=== PATIENT | male | born 1995 | race Caucasian/White ===

== ENCOUNTER 2016-09-25 10:09 | Emergency (ER) | payer BC, OTHER ==
[~2016-09-25] VITALS: Ht 185.4 cm; Wt 86.1 kg
[2016-09-25 10:17] VITALS: TEMP 36.9; Ht 185.4 cm; Wt 86.1 kg
[2016-09-25] MEDS ORDERED: AMOX875T PO (10:46)
[2016-09-25] MEDS ORDERED: DEXAMETHASONE SOD INJ 10 MG/ML VIAL IV ONE (11:00)
[2016-09-25] MEDS ORDERED: CLINDAMYCIN IV 900 MG in DEXTROSE 5% ADD-VANTAGE 100ML 100 ML IV ONE (11:00)
[2016-09-25] MEDS ORDERED: CLC/300 PO (11:38)
[2016-09-25] MEDS ORDERED: PRED10TA PO (11:38)
--- NOTE | 2016-09-25 11:41 | Discharge Instructions ---
Discharge Instructions Visit Reason for Visit: Swollen Tonsils, Earache, Trouble Breathing Discharge Discharge Diagnosis / Problem: SAME. Discharge Goals Goal(s): Improve function Activity Recommendations Activity Limitations: per Instructions/Follow-up section Lifting Limitations: none Exercise/Sports Limitations: none May Resume Sexual Activity: when tolerated Shower/Bathe: no limitations Anesthesia . Post Anesthesia Instructions: If you have had General Anesthesia or IV Sedation: * Do not drive today. * Resume driving when surgeon permits. * Do not make important decisions or sign legal documents today. * Call surgeon for: 1. Temperature elevations greater than 101 degrees F. 2. Uncontrollable pain. 3. Excessive bleeding. 4. Persistent nausea and vomiting. 5. Medication intolerance (nausea, vomiting or rash). * For nausea and vomiting use only clear liquids such as: tea, soda, bouillon until nausea subsides, then gradually increase diet as tolerated. * If you have any concerns or questions, call your surgeon's office. If physician is unavailable and it is an emergency, call 911 or go to the nearest emergency room. . Instructions / Follow-Up Instructions / Follow-Up PLEASE FOLLOW UP WITH DR. STEPHEN ON FRIDAY AT 745AM IN HIS OFFICE. Diet Recommendations Recommended Home Diet: resume previous diet ( TOLERATED) Pending Studies Studies pending at discharge: yes List of pending studies: PATHOLOGY FOR CULTURE Medical Emergencies . Who to Call and When: Medical Emergencies: If at any time you feel your situation is an emergency, please call 911 immediately. . Non-Emergent Contact Non-Emergency issues call your: Primary Care Provider Contact Number: [phone] . . "Provider Documentation" section prepared by Elva Mendez.
[2016-09-25 12:17] VITALS: BP 140/76; PULSE 90; O2SAT 97
--- NOTE | 2016-09-25 12:17 | EMERGENCY ROOM VISIT NOTE ---
History Report prepared by Chi: Inocencia Hayden Under the Supervision of: Dr. Fabiano Hamilton D.O. First contact with patient: 10:22 Chief Complaint: SORETHROAT Stated Complaint: SWOLLEN TONSILS, EARACHE, TROUBLE BREATHING History of Present Illness The patient is a 20 year old male who presents to the Emergency Room with complaints of a persistent sore throat that began Gabriel. He currently rates his discomfort as a 4/10 in severity. The patient states that he notices right tonsillar swelling and right ear pain. He notes congestion, difficulty sleeping , difficulty breathing, and a fever. The patient states that he has been using Tylenol for his fever. He denies any cough. The patient notes difficulty opening his mouth due to the pain. Source of History: patient Onset: Friday Position: throat Symptom Intensity: 4/10 Quality: other (sore) Timing: other (persistent) Associated Symptoms: + fevers, No cough Note: Associated Symptoms: congestion, difficulty sleeping, difficulty breathing Review of Systems See HPI for pertinent positives & negatives. A total of 10 systems reviewed and were otherwise negative. Past Medical & Surgical Surgical Problems: (1) S/P wisdom tooth extraction Family History No pertinent family history stated. Social History Smoking Status: Never Smoker Smokeless Tobacco Use: No Alcohol Use: none Marital Status: single Occupation Status: [employer] student Current/Historical Medications Scheduled Clindamycin HCl (Clindamycin HCl), 1 CAP PO Q6H Prednisone Tab (Prednisone), 10 MG PO BLANK Allergies Coded Allergies: No Known Allergies (Unverified , 09/25/16) Physical Exam Vital Signs Date Time Temp Pulse Resp B/P Pulse Ox O2 Delivery O2 Flow Rate FiO2 09/25/16 10:17 36.9 65 18 127/77 99 Room Air 09/25/16 10:16 99 Room Air Physical Exam CONSTITUTIONAL/VITAL SIGNS: Reviewed / noted above. GENERAL: Non-toxic in appearance. INTEGUMENTARY: Warm, dry, and [place]. HEAD: Normocephalic. EYES: without scleral icterus or trauma. ENT/OROPHARYNX: Right peritonsillar swelling and erythema with minimal exudate. There is mild uvular deviation to the left. Right anterior tender lymphadenopathy. LYMPHADENOPATHY/NECK: Is supple without meningismus. RESPIRATORY: Lungs clear and equal. CARDIOVASCULAR: Regular rate and rhythm. GI/ABDOMEN: Soft and nontender. No organomegaly or pulsatile mass. No rebound or guarding. Normal bowel sounds. EXTREMITIES: Warm and well perfused. BACK: No CVA tenderness. NEUROLOGICAL: Intact without focal deficits. PSYCHIATRIC: normal affect. MUSCULOSKELETAL: Normally developed with good muscle tone. Medical Decision & Procedures Medications Administered Medications (Trade) Dose Ordered Sig/Marjorie Route Start Time Stop Time Status Last Admin Dose Admin Dexamethasone Sodium Phosphate 10 mg 10 mg NOW ONCE IV 09/25/16 11:00 09/25/16 11:01 DC 09/25/16 11:18 10 MG Clindamycin Phosphate/Dextrose (Cleocin Iv/ Dextrose Add-[place] 100ML) 106 ml @ 100 mls/hr ONE ONCE IV 09/25/16 11:00 09/25/16 12:03 DC 09/25/16 11:26 100 MLS/HR ED Course 1023: Previous medical records were reviewed. The patient was evaluated in room B10. A complete history and physical examination was performed. 1040: I discussed the patients case with CARMEN Tubbs. He is going to come see the patient. He would like the patient to have some Decadron and Clindamycin. 1042: I reevaluated the patient and updated him on the plan. He states that he was recently started on Augmentin. 1100: Ordered Clindamycin Phosphate 900 mg/Dextrose 106 ml @ 100 mls/hr IV, Decadron Inj 10 mg IV. 1117: I reevaluated the patient and CARMEN Tubbs is in draining the patient' s abscess. After this was done, the exam findings and treatment plan were discussed with the patient and he verbalized complete understanding and agreement. He is ready to go home shortly. Medical Decision differential diagnosis include: Peritonsillar abscess, pharyngitis, viral syndrome This is a 20-year-old male who presents to the ED with a chief complaint of throat discomfort. The patient states that he developed right-sided throat pain on Friday, 5 days ago. He was seen at urgent care 4 days ago and started on Augmentin. Today he presents with increasing discomfort as well as some mild trismus. His vital signs are normal. His exam reveals evidence of peritonsillar abscess on the right. I spoke with ENT specialist Dr. rCowe who evaluated the patient in emergency department. A peritonsillar abscess was drained by him. Cultures been sent. The patient received IV clindamycin as well as IV Decadron. He was discharged on clindamycin and redness on. He will follow-up with the ENT specialist in 2 days. Consults Time Called: 1027 Consulting Physician: Dr. Fish ENT Returned Call: [phone] I discussed the patients case with Dr. Fish ENT. He is going to come see the patient. He would like the patient to have some Decadron and Clindamycin. Impression Primary Impression: Peritonsillar abscess Scribe Attestation The scribe's documentation has been prepared under my direction and personally reviewed by me in its entirety. I confirm that the note above accurately reflects all work, treatment, procedures, and medical decision making performed by me. Departure Information Dispostion Home / Self-Care Prescriptions Prednisone Tab (PREDNISONE) 10 Mg Tab 10 MG PO BLANK for 10 Days, #42 TAB take 40mg bid x 2 days, 30mg bid x 2 days, 20mg bid x 2 days, 10mg bid x 2 days, 10mg daily x 2 days, then stop Prov: Elva Mendez PA 09/25/16 Clindamycin HCl (Clindamycin HCl) 300 Mg Cap 1 CAP PO Q6H for 14 Days, #56 CAP Prov: Elva Mendez PA 09/25/16 Referrals No Doctor, Assigned (PCP) Forms HOME CARE DOCUMENTATION FORM, IMPORTANT VISIT INFORMATION Patient Instructions My [facility] Additional Instructions Call [phone] for follow up with Dr. Fish. [address] [place] [address] Clindamycin and Prednisone as prescribed.
--- NOTE | 2016-09-25 12:40 | ENT CONSULTATION ---
DATE OF CONSULTATION: 09/25/2016 I have been asked by Dr. Hamilton in the [facility] Emergency Room to evaluate this patient with a possible right peritonsillar abscess. HISTORY OF PRESENT ILLNESS: The patient is a 20-year-old male who has a 6-day history of a right greater than left-sided, sore throat with associated referred otalgia, mild odynophagia, and mild dysphagia with no shortness of breath or other ominous symptoms. He was evaluated in the Emergency Room and they thought that he might have a peritonsillar abscess. He was seen in an urgent care center on Friday and placed on Augmentin, but his symptoms continue to progress despite being on the antibiotics. He has a history of remote recurrent streptococcal tonsillitis and used to get 7 infections a year from the ages of [age], but then this lessened. This is his second episode of a sore throat over the past 1 year and his first peritonsillar abscess. ALLERGIES: No known drug allergies. MEDICATIONS: Augmentin. PAST MEDICAL HISTORY: As above. PAST SURGICAL HISTORY: None. FAMILY HISTORY: Noncontributory. No bleeding disorders or malignant hyperthermia. 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 He has from [facility] [employer]. He was scheduled to see an otolaryngology in January for a possible tonsillectomy at that time. REVIEW OF SYSTEMS: The patient has a sore throat, odynophagia, dysphagia with referred right otalgia. He denies any voice changes, hoarseness, shortness of breath, dizziness, or chest pain. PHYSICAL EXAMINATION: GENERAL: This is a healthy appearing white male in no acute distress with a very mildly muffled voice. External auditory canals and tympanic membranes are clear bilaterally. The patient has a mild left greater than right septal deviation with mild inferior turbinate hypertrophy. Oral cavity and oropharyngeal examination reveals no trismus. There is a bifid uvula. The right tonsil was 3+ in size, and the left tonsil was 2+ in size and there was soft palate edema overlying the right peritonsillar region with some slight uvular deviation to the left consistent with likely peritonsillar abscess. There is also tender lymphadenopathy within the right upper jugulodigastric region. After verbally obtaining informed consent, the oral cavity and oropharynx were sprayed with Cetacaine anesthetic spray. A total of 2 mL of 1% lidocaine with 1:100,000 epinephrine was then used to inject the right peritonsillar space submucosally. After allowing adequate time for anesthesia, an 18 gauge needle on a 10 mL syringe was used to aspirate approximately 3 mL of thick purulent material which was sent off for aerobic and anaerobic culture and sensitivity as well as a Gram stain. A #11 scalpel was then used to make a transverse incision in the right soft palate at the level of the needle aspiration, and more local anesthetic was administered through this incision. A hemostat was then used to spread the right peritonsillar space and approximately 2 mm more purulent material was expressed. The patient's neck was then massaged to get out further purulent material from the right peritonsillar and peripharyngeal space. The patient tolerated the procedure well and there were no apparent complications. We will make recommendations for clindamycin 300 mg p.o. q. 6 hours for 14 days, and prednisone 40 mg p.o. b.i.d. for 2 days, followed by 30 mg p.o. b.i.d. for 2 days, followed by 20 mg p.o. b.i.d. for 2 days, followed by 10 mg p.o. b.i.d. for 2 days, followed by 10 mg daily for 2 days. He will also see me in my office on Friday at 7:45 a.m. He is to call sooner if his symptoms worsen. These findings were discussed with the Emergency Room team.
== END 2016-09-25 12:17 | disposition home or self-care (01) ==
LOC: C.EDB 10:13
DX: J36 Peritonsillar abscess (principal)